=== PATIENT | female | born 1980 | race Caucasian/White ===

== ENCOUNTER 2017-01-20 06:56 | Day surgery (SDC) | payer OTHER ==
[2017-01-19 16:41] VITALS: BMI 24.7
--- NOTE | 2017-01-20 09:12 | HP ---
Admitting History and Physical - Admission Chief Complaint: Chemical History of Present Illness: 36 yo found to have a blighted ovum. She's Pre op for suction D&C History Source: Patient Limitations to Obtaining History: No Limitations - Past Medical History ...LMP: 11/13/16 ...: Yes ...: 2 ...Para: 1 - Past Surgical History Past Surgical History: Yes: None - Smoking History Smoking history: Never smoked Have you smoked in the past 12 months: No - Alcohol/Substance Use Hx Alcohol Use: No - Social History Usual Living Arrangement: Yes: With Spouse History of Recent Travel: No Home Medications - Allergies Allergies/Adverse Reactions: Allergies Allergy/AdvReac Type Severity Reaction Status Date / Time No Known Drug Allergies Allergy Verified 01/20/17 07:20 - Home Medications Home Medications: Ambulatory Orders [id number]/Iron Fumarate/FA/Dss [ 19 Tablet] 1 each PO DAILY 01/19/17 Family Disease History - Family Disease History Family History: Unremarkable Review of Systems - Review of Systems Constitutional: reports: No Symptoms Eyes: reports: No Symptoms HENT: reports: No Symptoms Neck: reports: No Symptoms Cardiovascular: reports: No Symptoms Respiratory: reports: No Symptoms Gastrointestinal: reports: No Symptoms Genitourinary: reports: No Symptoms Breasts: reports: No Symptoms Reported Musculoskeletal: reports: No Symptoms Integumentary: reports: No Symptoms Neurological: reports: No Symptoms Endocrine: reports: No Symptoms Hematology/Lymphatic: reports: No Symptoms Psychiatric: reports: No Symptoms Pain Intensity: 0 Physical Examination Vital Signs: Vital Signs Temperature 97.9 F 01/20/17 07:11 Pulse Rate 78 01/20/17 07:11 Respiratory Rate 16 01/20/17 07:11 Blood Pressure 109/62 01/20/17 07:11 O2 Sat by Pulse Oximetry (%) 100 01/20/17 07:11 Constitutional: Yes: Well Nourished Eyes: Yes: Conjunctiva Clear HENT: Yes: Atraumatic Neck: Yes: Supple Cardiovascular: Yes: Regular Rate and Rhythm Respiratory: Yes: Regular, CTA Bilaterally Gastrointestinal: Yes: Normal Bowel Sounds Musculoskeletal: Yes: WNL Integumentary: Yes: WNL Neurological: Yes: Alert, Oriented ...Motor Strength: WNL Psychiatric: Yes: Alert, Oriented Problem List - Problems (1) Blighted ovum Code(s): O02.0 - BLIGHTED OVUM AND NONHYDATIDIFORM MOLE Assessment/Plan Blighted ovum Pre op for suction D&C Consent signed Anesthesia to see patient
--- NOTE | 2017-01-20 09:14 | OP ---
Operative Note - Note: Operative Date: 01/20/17 Pre-Operative Diagnosis: Blighted ovum Operation: Suction D&C Findings: Product of conception Post-Operative Diagnosis: Same as Pre-op Surgeon: Patricia Juan Anesthesia: General Specimens Removed: Fluid from gestational sac Estimated Blood Loss (mls): 10
[2017-01-20] MEDS ORDERED: MIDAZOLAM HCL 2 MG/2 ML SINGLE DOSE VIAL ONE (09:19)
[2017-01-20 11:18] VITALS: TEMP 98.7
[2017-01-20 12:06] VITALS: BP 92/62; PULSE 71
--- NOTE | 2017-01-21 09:18 | OP ---
DATE OF OPERATION: 01/20/2017 PREOPERATIVE DIAGNOSIS: Blighted ovum. POSTOPERATIVE DIAGNOSIS: Blighted ovum. PROCEDURE: Suction dilatation and curettage. SURGEON: Patricia Juan MD ANESTHESIA: General. COMPLICATIONS: None. ESTIMATED BLOOD LOSS: 10 mL. DESCRIPTION OF PROCEDURE: Patient was taken to the operating room, where general anesthesia was administered. Patient was then placed in lithotomy position. She was then prepped and draped in proper sterile fashion. A weighted speculum was placed in the vagina. The anterior lip of the cervix was grasped with a single-tooth tenaculum, and the cervical os was then sequentially dilated with Wolff dilators. Then, a 7-mm suction curette was then gently introduced into the uterine cavity. The suction curette was rotated to clear the uterus of all products of conception. Then, a sharp curettage was performed. The curette was reintroduced to clear the uterus of all remaining products of conception. Then, the instruments were removed. The patient was taken out of lithotomy position. She was taken to PACU in stable condition. PATHOLOGY: Products of conception. Thaddeus [id number]
--- NOTE | 2017-01-21 14:00 | PATH ---
Surgical Pathology Report Patient Name: SIMEON GOLD Med. Rec. #: [id number] /Age/Gender: 1980 (Age: 36) / F Account: [id number] Location: [facility] Taken: 01/20/2017 Received: 01/20/2017 Reported: 01/21/2017 Physicians: Patricia Juan M.D. Specimen(s) Received CONTENTS OF UTERUS Clinical History Blighted ovum Final Diagnosis UTERINE CONTENTS, EVACUATION: CHORIONIC VILLI CONSISTENT WITH PRODUCTS OF CONCEPTION. Electronically Signed Vish Crockett M.D. Gross Description Received in formalin labeled "contents of uterus," is an 11.5 x 10.0 x 0.8 cm aggregate of hodge-red soft tissue fragments. Probable villous tissue is identified. No definite somatic tissue is identified. A claim service representative portion is submitted in one cassette. 01/20/201701/20/2017
== END 2017-01-20 12:00 | disposition home or self-care (01) ==
LOC: JASU-SURG 06:56
PROVIDERS: ATTEND Obstetrics & Gynecology
PROC: 10D07Z6 Extraction of Products of Conception, Vacuum, Via Natural or Artificial Opening (ICD-10-PCS; principal; 2017-01-20 08:30)
DX: O02.0 Blighted ovum and nonhydatidiform mole (principal)
CPT/HCPCS: 76817-TC; 88305-TC; 94760